=== PATIENT | male | born 1950 | race Caucasian/White ===

== ENCOUNTER 2018-10-21 19:00 | Emergency (ER) | payer OTHER ==
[2018-10-21] MEDS ORDERED: TDAP ADULT 0.5 ML INJ (BOOSTRIX) IM ONE (19:19)
--- NOTE | 2018-10-21 19:26 | EDPHY ---
General Time Seen by Provider: 10/21/18 19:10 Narrative: CLINICAL IMPRESSION: Head injury, scalp abrasion, rib pain ASSESSMENT/PLAN: Patient is a 68-year-old male with no significant medical history who presents to the emergency department after sustaining a fall on the ice, complaining of right-sided head pain, scalp abrasion and right-sided rib pain. Patient is well appearing and in no acute distress, complains of mild discomfort at site of impact on his scalp as well as right-sided rib pain. The fall was witnessed and there was no loss of consciousness. Patient is afebrile and nontoxic-appearing, he is in no acute distress on arrival. His neurological exam is grossly normal with no focal deficit. Examination reveals abrasion noted to the right crown as well as reproducible, axillary right rib pain. He has no new focal neurologic deficit, there has been no altered mentation, there are no clinical findings to suggest skull fracture, there is no known bleeding disorder, there has been no vomiting and no posttraumatic seizure. Secondary to age we feel a head CT is indicated at this time. CT head revealed chronically deformed skull, no evidence of acute skull fracture or intracranial hemorrhage. Rib series and chest x-ray revealed no evidence of obvious displaced rib fracture, pneumothorax or hemothorax. History and physical examination is consistent with head injury, scalp abrasion and right-sided rib pain. The patient's scalp wound was cleansed, antibiotic ointment was applied. His tetanus was updated. On repeat examination prior to discharge the patient declines any need for pain medication, he was able to ambulate independently without difficulty. His neurological exam was grossly normal no focal deficit. The patient lives in [place], he primarily resides in [place]. Patient's blood pressure was noted to be elevated on arrival, this normalized without intervention. Strict return precautions were discussed- they will return to the emergency department for altered mentation, lethargy, vomiting, seizure, chest pain, shortness of breath or for any other concerning symptom. Patient verbalizes understanding and is in agreement with this plan. DIFFERENTIAL DX: Head injury including but not limited to concussion, skull fracture, intraparenchymal contusion, subarachnoid, subdural and epidural hematoma. Chest injury differential to include contusion, rib fracture, pneumothorax, hemothorax. ED COURSE: 1924: Case discussed with Dr. Cleveland CHIEF COMPLAINT: Head injury, scalp abrasion, right-sided rib pain HPI: Patient is a 68-year-old male with no significant medical history who presents to the emergency department after sustaining a fall complaining of head injury, scalp abrasion and right-sided rib pain. Patient reports he was outside just prior to arrival, he slipped on the ice causing him to fall with his right arm stretched out landing on his right ribs as well as hitting his head on the concrete. Patient presents complaining of scalp abrasion, pain at impact site as well as right-sided rib pain. Patient did not lose consciousness, he is not on anti-platelet or anticoagulation therapy, he denies any focal deficit, altered mentation, retrograde amnesia, vomiting or posttraumatic seizure. He has had no vision loss or visual changes. Patient also denies any midline neck pain, back pain or abdominal pain. He did not take anything for pain prior to arrival in the emergency department. Patient denies saddle paresthesias, lower extremity numbness, tingling, major motor weakness, urinary retention or bowel/ bladder incontinence. PMH: Denies Pertinent Past Surgical History: Denies Family History: Noncontributory Social History: Denies smoking, denies illicit drug use REVIEW OF SYSTEMS: All other systems negative Constitutional: No fever, no chills, appetite change. Eyes: No discharge, vision change ENT: No sore throat, congestion, ear pain. Cardiovascular: No chest pain, no palpitations. Respiratory: No cough, no shortness of breath. Gastrointestinal: No abdominal pain, no vomiting, diarrhea. Genitourinary: No hematuria, dysuria, flank pain, pelvic pain Musculoskeletal: Right-sided scalp pain, Right-sided rib pain. No back pain, joint swelling, joint pain, myalgias. Skin: Abrasion. No rashes, color change. Neurological: No headache, dizziness, weakness. PHYSICAL EXAM: General Appearance: Well-appearing, no acute distress HENT: Normocephalic, abrasion to the right crown. Bilateral external ears are normal. Bilateral tympanic membranes are normal with pearly byers reflex. No hemotympanum bilaterally No Alfred sign or raccoon eyes Nares are clear, mucosa is pink. No nasal bridge tenderness. Oropharynx is clear, uvula is midline. There is no tonsillar enlargement or exudate. There is no malocclusion or mandibular tenderness to palpation. The dentition is normal. Eyes: PERRLA, EOMI intact without evidence of entrapment, no nystagmus, swelling , discharge, pain or photosensitivity. Conjunctiva pink, no pallor or injection ] Neck: Supple, nontender, no lymphadenopathy, no midline pain, FROM, no meningismus. Respiratory: There are no retractions, lungs are clear to auscultation. Patient with tenderness to palpation superior axilla along the ribs. No obvious ecchymosis or abrasions. Cardiac: Regular rate and rhythm, no murmurs or gallops. Chest: Patient with tenderness to palpation along the anterior axillary proximal ribs, no obvious bony deformity, abrasion or ecchymosis. Gastrointestinal: Abdomen is soft, nontender, bowel sounds normal, no masses/ hernia, no rigidity, guarding or focal peritoneal findings. Back: No step-off, palpable bony abnormality, edema, erythema or ecchymosis of the cervical, thoracic or lumbar spines. TTP: No tenderness to palpation of the thoracic or lumbar spines. Full range of motion of all spines. 5/5 and equal strength of the UEs and LEs bilaterally including shoulder shrug. Pulses: 2+ and equal radial, DP and PT pulses bilaterally. Sensation intact and symmetric to light touch from face, UEs and LEs bilaterally. Neurological: MENTAL STATUS: Patient is alert and oriented to person, place, time, and situation. Recent and remote memory are intact. Attention and concentration are normal. Found knowledge is appropriate to level of education. Mood and affect normal. SPEECH: Language including naming, repetition, comprehension, and spontaneous speech are normal. No dysarthria or dysphagia. CRANIAL NERVES: II: Visual cm are full to confrontation. Vision is grossly intact. III, IV, : Pupils are equal, round, reactive to light. Extraocular eye movements are full and without nystagmus. V: Facial sensation is intact to touch symmetrically in all 3 divisions. VII: Face is symmetric at rest with no asymmetry of grimace or evidence of facial weakness. VIII: Hearing is intact bilaterally to finger rub. IX, X: Palate is midline and elevates symmetrically with intact cough/gag. XI: Sternocleidomastoid and trapezius strength is normal. XII: Tongue protrudes midline without atrophy or fasciculations. MOTOR: Normal bulk and tone symmetrically in the upper and lower extremities. Upper extremities: shoulder abduction, elbow flexion, elbow extension, flexion of fingers and finger abduction strength 5/5 bilaterally. Lower extremities: hip flexion, knee flexion and extension, plantar and dorsiflexion of foot, and great toe extension strength 5/5 bilaterally. No pronator drift. SENSORY: Sensation is intact to light touch and symmetric in the UE's in LE's bilaterally. Romberg is negative. COORDINATION: Fine motor and rapid alternating movements are normal. Finger to nose is normal bilaterally. Lmby-no-odfa is normal bilaterally. No abnormal movements noted. There is no tremor at rest or with posture or action. GAIT/STATION: Casual, straightforward gait is normal. Patient can walk on toes and on heels. No gait instability. Skin: Warm, dry, no rashes, no nodules on palpation. Musculoskeletal: Extremities are symmetrical, full range of motion, no tenderness, deformity, swelling, or erythema. Psychiatric: Patient is oriented X 3, there is no agitation. MEDICAL DECISION MAKING: Patient was seen independently. Secondary supervising physician at time of evaluation was Dr. Cleveland. Diagnosis: Head injury, scalp abrasion, right-sided rib pain. New, requires workup Summary: See Assessment and Plan for summary of ED visit Clinical lab tests: Not applicable. Independent visualization of images, tracing, or specimens: Yes. Decision to obtain medical records or history from someone other than the patient: Yes Review / Summarize previous medical records: No Discussed patient with another provider: Yes, Dr. Cleveland Patient Progress: Stable, discharge. (Rosita Eckert) Medical Decision Making: PHYSICIAN DOCUMENTATION: The patient was evaluated and managed by the Physician Rail Car [employer] and myself. I have reviewed the chart and agree with the findings and plan of care as documented. In addition, I examined the patient myself at 2039. History confirmed as slip on ice and fall without loss of consciousness. Physical findings as follows: No cervical spine tenderness. Negative imaging, ambulatory, normal mental status. Was a little bit "stunned" fter the fall by report, but currently does not have concussion symptoms. I am the secondary supervising physician. (Jeevan Cleveland) - Diagnostics Imaging Results: Imaging Impressions Head CT 10/21/18 19:19 Impression: 1. No evidence of acute intracranial hemorrhage or calvarial fracture. 2. Plagiocephaly and asymmetric thickening of the calvarium may represent asymmetric hyperostosis frontalis interna, Paget's disease, or fibrous dysplasia. Rosita Eckert was notified of these findings by telephone at 8:11 PM on 10/21/2018 - Objective Vital Signs: Initial Vital Signs Temperature (C) 36.8 C 10/21/18 19:09 Heart Rate 83 10/21/18 19:09 Respiratory Rate 20 10/21/18 19:09 Blood Pressure 156/100 H 10/21/18 19:09 O2 Sat (%) 93 10/21/18 19:09 O2 Delivery Mode Room Air Allergies/Adverse Reactions: No Known Allergies Allergy (Unverified 10/21/18 20:13) Medications Given: Discontinued Medications Diphtheria/Tetanus/Acell Pertussis (Boostrix) 0.5 ml IM .ONCE ONE Stop: 10/21/18 19:20 Last Admin: 10/21/18 20:06 Dose: 0.5 ml Departure - Departure Disposition: Home, Routine, Self-Care Clinical Impression: Abrasion of scalp, initial encounter Head injury Qualifiers: Encounter type: initial encounter Qualified Code(s): S09.90XA - Unspecified injury of head, initial encounter Condition: Good Instructions: Head Injury (ED) Additional Instructions: DISCHARGE INSTRUCTIONS FROM YOUR DOCTOR Thank you for visiting our emergency department today. Please keep in mind that discharge from the emergency department does not mean that there is nothing wrong - it simply means that we have not identified an emergency condition that requires further evaluation or treatment in the hospital. You should always plan to follow up with primary care for re-evaluation of your condition in the next 2-3 days. Brain rest: No phone, texting, t.v., music. Stop smoking as soon as possible. Avoid activities where the you could fall or reinjure your head. No contact sports until the pain, swelling and all symptoms have completely resolved and a primary care physician has cleared you. As discussed, head injuries can be cummulative. Your head needs a rest. Elevate the head of the bed to decrease pain and/or swelling. Clean the wounds with soap and water. Apply antibiotic ointment. Watch for any signs of skin infection like redness, warmth, swelling, bleeding, drainage, fever or chills. For pain control: You may take Tylenol, I recommend 500-1000 mg every 6-8 hours as needed. Take with food and a full glass of water. Stop taking if this is upsetting her stomach. Do not exceed 3000/4000 mg in a 24 hr period. You may also take ibuprofen, recommend 400 mg every 6 hr. Take with food and a full glass of water. Stop taking if this upsets her stomach. Do not exceed 2400 mg in a 24 hr period. Ice your ribs, we did not see an obvious rib fracture on your x-ray. You may also apply topical pain patch, I recommend Salonpas which you can purchase over- the-counter. Apply as directed. You should spend the next 24 hours with a market garden worker who knows you well and can help monitor your symptoms. Return immediately for severe headache, unusual fatigue, difficulty being aroused, vomiting, dizziness, fainting, mental status changes, personality changes, tremor/seizure, visual disturbance, unusual movements, numbness, tingling, weakness or other concerns. Schedule a follow-up appointment with a primary care physician in 1-2 days re- evaluation. Use the list of resources if you need primary care contact information. Return for any of the above mentioned symptoms, for fever, chills, development of bruising or swelling, new site of pain, blurry vision, double vision, eye sensitivity to light, eye pain, visual disturbance, neck pain or stiffness, back pain, arm or leg pain, arm or leg numbness, tingling, weakness, for other signs of injury, change in or loss of bowel or bladder control, or for any other new, worsening or worrisome symptoms. People present with illnesses and injuries in different ways, and it is always possible that we have missed something. You may always return for re-evaluation if symptoms worsen or if they are not improving or if you develop new/different symptoms. Again, thank you for choosing our emergency department. We hope that you feel better. Referrals: Arian Del Toro, [Doctor of Osteopathy] - 2-3 days, call for appt.
[2018-10-21 20:51] VITALS: BP 134/78
== END 2018-10-21 20:50 | disposition home or self-care (01) ==
DX: S22.31XA Fracture of one rib, right side, initial encounter for closed fracture (principal); S00.01XA Abrasion of scalp, initial encounter; W00.0XXA Fall on same level due to ice and snow, initial encounter; Y92.9 Unspecified place or not applicable; Y93.9 Activity, unspecified; Y99.9 Unspecified external cause status; Z23 Encounter for immunization